=== PATIENT | female | born 1970 | race Caucasian/White ===

== ENCOUNTER → 2016-11-10 | Outpatient (CLI) | payer BC, OTHER ==
[~2016-11-10] MED LIST: GLUCTAB7 PO; MULT-506 PO
[2016-11-10 09:52] LABS: BLOOD UREA NITROGEN 14 mg/dl (7-18); BUN/CREATININE RATIO 14.8 (10-20); CARBON DIOXIDE 27 mmol/L (21-32); CHLORIDE 106 mmol/L (98-107); CREATININE 0.97 mg/dl (0.60-1.20); GLUCOSE 88 mg/dl (70-99); POTASSIUM 4.3 mmol/L (3.5-5.1); SODIUM 140 mmol/L (136-145)
[2016-11-10 10:04] LABS: CHOLESTEROL 192 mg/dl (0-200); CHOLESTEROL/HDL RATIO 2.5; HDL CHOLESTEROL 78 mg/dl; LDL CHOLESTEROL CALCULATED 101 mg/dl; TRIGLYCERIDES 63 mg/dl (0-150); VERY LOW DENSITY LIPOPROT CALC 13 mg/dl
== END | disposition home or self-care (01) ==
LOC: C.LAB1850 07:05
PROVIDERS: ATTEND Nurse Practitioner
DX: Z00.00 Encounter for general adult medical examination without abnormal findings (principal); E03.8 Other specified hypothyroidism

== ENCOUNTER → 2017-01-20 | Outpatient (CLI) | payer BC, OTHER ==
--- NOTE | 2017-01-20 16:09 | MAMMOGRAPHY REPORT ---
BILATERAL DIGITAL SCREENING MAMMOGRAM TOMOSYNTHESIS WITH CAD: 01/20/2017 CLINICAL HISTORY: Routine screening. Patient has no complaints. TECHNIQUE: Breast tomosynthesis in addition to standard 2D mammography was performed. Current study was also evaluated with a Computer Aided Detection (CAD) system. COMPARISON: Comparison is made to exams dated: 01/18/2016 mammogram, 01/16/2015 mammogram, 01/14/2014 mammogram, 08/03/2012 mammogram, and 08/11/2011 mammogram - [facility]. BREAST COMPOSITION: The tissue of both breasts is extremely dense, which lowers the sensitivity of mammography. FINDINGS: No suspicious masses, calcifications, or areas of architectural distortion are noted in e ither breast. There has been no significant interval change compared to prior exams. A linear scar marker denotes a scar on the left medial breast. IMPRESSION: ACR BI-RADS CATEGORY 1: NEGATIVE There is no mammographic evidence of malignancy. A 1 year screening mammogram is recommended. The p atient will receive written notification of the results. Approximately 10% of breast cancers are not detected with mammography. A negative mammographic repor t should not delay biopsy if a clinically suggestive mass is present. Venice Longoria M.D. /:01/20/2017 15:02:42 Electronic Data Interchange Specialist: Aracelis Danielson, [facility] letter sent: Normal 1/2 BI-RADS Code: ACR BI-RADS Category 1: Negative
== END | disposition home or self-care (01) ==
LOC: C.MAMM 08:21
PROVIDERS: ATTEND Obstetrics & Gynecology
DX: Z12.31 Encounter for screening mammogram for malignant neoplasm of breast (principal)

== ENCOUNTER → 2017-06-07 | Outpatient (CLI) | payer BC, OTHER | END | disposition home or self-care (01) | LOC: C.PAPS 09:49 | PROVIDERS: ATTEND Obstetrics & Gynecology | DX: Z01.419 Encounter for gynecological examination (general) (routine) without abnormal findings (principal) ==

== ENCOUNTER → 2017-06-21 | Outpatient (CLI) | payer BC, OTHER ==
--- NOTE | 2017-06-21 15:30 | MAMMOGRAPHY REPORT ---
BREAST MRI OF BOTH BREASTS : 06/21/2017 CLINICAL HISTORY: Screening breast MRI. Strong family history of breast cancer. COMPARISON: Comparison is made to exams dated: 01/20/2017 mammogram and 07/20/2015 breast MRI - [facility]. Prior breast MRIs dated 07/24/2013, 02/28/2014. Technique: The patient was placed prone in a dedicated breast imaging coil. Precontrast axial T1-geo ghted, axial T2-weighted fat saturation, and axial T1-weighted fat saturation images were obtained. After the administration of 6.5 mL of Gadavist IV contrast, sequential T1-weighted fat saturation elmer ges were obtained. Subtraction images were obtained of the dynamic contrast enhanced sequences, and 3-D reformations were performed. The Clean PET software was used for kinetic analysis. Findings: There is moderate background parenchymal enhancement bilaterally. There are no suspicious enhancing masses or areas of abnormal non-mass enhancement within either breast. There has been no significant interval change compared to prior exams. There is a stable 6 mm enhancing circumscribed mass with en hancing internal septations and persistent kinetic pattern in the left 2:00 breast middle depth, whic h is stable dating back to at least the 2012 exam and is considered benign given long-term stability and likely represents a fibroadenoma (series [id number] image [id number]). Again noted are multiple T2 hyperinten se, nonenhancing masses scattered bilaterally, consistent with cysts. There are multiple small foci of enhancement seen scattered bilaterally, not significantly changed and felt to represent background parenchymal enhancement. A 4 mm focus of enhancement in the left posterior breast at approximately 6:00 demonstrates corresponding T2 hyperintensity; this is stable compared to the prior 2014 breast M RI and is considered benign given long-term stability (series [id number] image 78). There is no evidence of axillary adenopathy. The chest wall structures are negative. Visualized ext ramammary soft tissues are grossly unremarkable. IMPRESSION: ACR BI-RADS CATEGORY 2: BENIGN Stable exam, with no MRI evidence of malignancy in either breast. Recommend routine bilateral screen ing mammograms which are due December 2017, and recommend screening bilateral breast MRI in one year. Venice Longoria M.D. /:06/21/2017 14:13:10 Assistant Director Of Financial Aid: straw boss, [facility] BI-RADS Code: ACR BI-RADS Category 2: Benign
== END | disposition home or self-care (01) ==
LOC: C.MRI 11:30
PROVIDERS: ATTEND Obstetrics & Gynecology
DX: R92.2 Inconclusive mammogram (principal); Z80.3 Family history of malignant neoplasm of breast

== ENCOUNTER → 2017-11-13 | Outpatient (CLI) | payer OTHER ==
[2017-11-13 12:40] LABS: HEMATOCRIT 38.3 % (37-47); MEAN CELL VOLUME 92.3 fL (80-100); MEAN CORPUSCULAR HEMOGLOBIN 31.3 pg (25-34); MEAN CORPUSCULAR HGB CONC 33.9 g/dl (32-36); MEAN PLATELET VOLUME 10.7 fL (7.4-10.4); PLATELET COUNT 223 K/uL (130-400); RED CELL DISTRIBUTION WIDTH SD 43.3 fL (36.4-46.3); WHITE BLOOD COUNT 3.75 K/uL (4.8-10.8)
[2017-11-13 13:44] LABS: BLOOD UREA NITROGEN 10 mg/dl (7-18); CALCIUM 9.1 mg/dl (8.5-10.1); CARBON DIOXIDE 28 mmol/L (21-32); CREATININE 0.98 mg/dl (0.60-1.20); GLUCOSE 86 mg/dl (70-99); POTASSIUM 4.7 mmol/L (3.5-5.1); SODIUM 140 mmol/L (136-145)
== END | disposition home or self-care (01) ==
LOC: C.LABBFT 10:44
PROVIDERS: ATTEND Nurse Practitioner
DX: E03.8 Other specified hypothyroidism (principal); K21.9 Gastro-esophageal reflux disease without esophagitis